=== PATIENT | female | born 1945 | race Caucasian/White ===

== ENCOUNTER 2016-06-06 19:35 | Emergency (ER) | payer BC, MEDICARE ==
[~2016-06-06] VITALS: Ht 157.5 cm; Wt 72.9 kg
[~2016-06-06 19:35] MED LIST: PROG100C4 PO; THYR90TA PO; [UNRECOGNIZED DRUG - CODE] PO
[2016-06-06 19:38] VITALS: BP 129/61; PULSE 97; RESP 16; TEMP 97.8; O2SAT 97; Ht 157.5 cm; Wt 72.9 kg
--- NOTE | 2016-06-06 19:58 | NUR ---
PROVIDER DR OTOOLE IN TO SEE PATIENT.
[2016-06-06] MEDS ORDERED: CALC600T12 PO (19:59)
[2016-06-06] MEDS ORDERED: LEVO100T12 PO (19:59)
[2016-06-06] MEDS ORDERED: MULT1TAB69 PO (19:59)
[2016-06-06] MEDS ORDERED: LOVA40TA2 PO (19:59)
[2016-06-06] MEDS ORDERED: CYAN250010 PO (19:59)
[2016-06-06] MEDS ORDERED: BUPIVACAINE 0.5% (5mg/ml) 30ml INJ SDV INFIL ONE (20:00)
--- NOTE | 2016-06-06 20:04 | NUR ---
SUTURE DR OTOOLE IN ROOM TO SUTURE LACERATION.
[2016-06-06] MEDS ORDERED: TETANUS,DIPHTH,a PERTUS (Tdap) 0.5 ML VIAL IM ONE (20:15)
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
[2016-06-06] MEDS ORDERED: NEOMYCIN/POLYM/BACITR OINT PACKET TOP ONE (20:30)
== END 2016-06-06 20:30 | disposition home or self-care (01) ==
LOC: ED 19:35
DX: S51.011A Laceration without foreign body of right elbow, initial encounter (principal); V18.0XXA Pedal cycle driver injured in noncollision transport accident in nontraffic accident, initial encounter; Y93.55 Activity, bike riding; Y92.009 Unspecified place in unspecified non-institutional (private) residence as the place of occurrence of the external cause; Y99.8 Other external cause status
CPT/HCPCS: 12002; 90471; 90715; 99284; S0020; 96372